=== PATIENT | female | born 1995 | race Two or more races ===

== ENCOUNTER → 2018-10-02 | Emergency (ER) | payer BC, OTHER ==
[~2018-10-02] MED LIST: Acetaminophen TAB* 325 MG ONE; Acetaminophen TAB* 325 MG PO ONE; Iohexol 300* (CONTRAST) 10 ML SDV IV ONE; Ketorolac INJ* 30 MG/ML 1 ML VIAL IV PUSH ONE; Ketorolac INJ* 30 MG/ML 1 ML VIAL ONE; NS 0.9% 1000 ML*IV.FLUID IV ONE
--- NOTE | 2018-10-02 12:05 | ED ---
HPI Febrile Illness - HPI Summary HPI Summary: A 22 y/o F sent from [facility] presents to ED with c/o fever onset two days ago, 09/30. At onset, pt was feeling lethargic, and had episodes of diarrhea, R-lower back pain and RUQ and RLQ abd pain. Her temp at home was 99 F. She is also experiencing chills, nausea, cough, stiff neck, mild sore throat , ear pain, generalized myalgia, and occipital NGUYỄN. 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 In ED, pt's temperature is 102.6 F. She denies vomiting, rhinorrhea, urinary sx. She ate an apple at 0800 today and has been drinking water throughout the morning. No flu shot this year. She did get all her vaccines prior to coming to [place], including the meningitis vaccine. LNMP: began 09/24/18, which was usual flow. PMHx: hypothyroidism and takes medication. She also takes Zoloft, Topomax, Amitriptyline for hx migraine. Pt states her current headache is not like her usual migraine NGUYỄN. Pt states that [facility] was concerned about possible appendicitis because of her RLQ abd pain, fever and nausea. Vital signs while in room: HR 92 bpm, BP 117/98, temp 102.6 temporal. - History of Current Complaint Chief Complaint: EDGeneral Hx Obtained From: Patient Onset/Duration: Started Days Ago, Atraumatic, Still Present Timing: Constant Temperature: 102.6 F - in ED, after acetaminophen 1.5 hrs prior at [facility] Initial Severity: Moderate Current Severity: Severe Pain Intensity: 8 Pain Scale Used: 0-10 Numeric Aggravating Factors: Nothing Alleviating Factors: Nothing Associated Signs and Symptoms: Chills, Diarrhea, Headache, Myalgia, Nausea, Sore Throat, Stiff Neck, Other: - pos: lethargy, back pain, abd pain, ear pain. neg: vomiting, rhinorrhea, migraine, urinary sx. - Allergy/Home Medications Allergies/Adverse Reactions: Allergies Allergy/AdvReac Type Severity Reaction Status Date / Time No Known Allergies Allergy Verified 10/16/16 11:25 PMH/Surg Hx/FS Hx/Imm Hx Previously Healthy: No Endocrine/Hematology History: Reports: Hx Thyroid Disease - 1 Denies: Hx Diabetes Cardiovascular History: Denies: Hx Hypertension, Hx Pacemaker/ICD History: Denies: Hx Renal Disease Sensory History: Denies: Hx Hearing Aid Neurological History: Reports: Hx Migraine Psychiatric History: Denies: Hx Panic Disorder - Surgical History Surgery Procedure, Year, and Place: Labrum surgery, performed in [place] ([facility]) Infectious Disease History: No Infectious Disease History: Denies: Traveled Outside the [place] in Last 30 Days - Family History Known Family History: Positive: Diabetes, Other - thyroid problems (hypo- mom) - Social History Occupation: Student Lives: Dormitory/Roommates - apartment, one roommate Alcohol Use: Occasionally Hx Substance Use: No Substance Use Type: Reports: None Hx Tobacco Use: No Smoking Status (MU): Never Smoked Tobacco Review of Systems Positive: Fever, Chills, Other - lethargy Positive: Sore Throat, Ear Ache. Negative: Nasal Discharge Cardiovascular: Negative Positive: Cough Positive: Abdominal Pain, Diarrhea, Nausea. Negative: Vomiting Negative: dysuria, hematuria Musculoskeletal: Other - stiff neck Positive: Myalgia - generalized Skin: Negative Positive: Headache - but no migraine Psychological: Normal All Other Systems Reviewed And Are Negative: Yes Physical Exam - Summary Physical Exam Summary: Appearance: Ill-appearing, febrile, moderate pain distress, well-nourished Skin: Warm, color reflects adequate perfusion, dry. Acne on back. No petechiae or purpura Head: Normal Head/Face inspection, atraumatic Eyes: Conjunctiva clear, PERRL, EOMI, no nystagmus ENT: Normal inspection, TM's clear, Pharynx not injected, tonsils not enlarged, no exudate Neck: Supple, no nodes, no JVD No spinal tenderness to palpation. Good chin to chest. No meningismus Respiratory: Lungs clear, normal breath sounds, no respiratory distress Cardio: Tachy, No murmur, pulses normal, brisk capillary refill Abdomen: Soft, RLQ tenderness, no guarding, no rebound, no CVAT Bowel sounds: Present Musculoskeletal: Strength Intact/ROM intact, no calf tenderness, no edema. No spinal tenderness to palpation. Psychological: Normal Neuro: Alert, muscle tone normal, no focal deficit. neg Kernig's and neg Tigredrobb Triage Information Reviewed: Yes Vital Signs On Initial Exam: Initial Vitals Temp Pulse Resp BP Pulse Ox 102.6 F 122 18 109/64 97 11/01/18 11:45 10/02/18 11:45 10/02/18 11:45 10/02/18 11:45 10/02/18 11:45 Vital Signs Reviewed: Yes Diagnostics - Vital Signs Vital Signs Temp Pulse Resp BP Pulse Ox 10/02/18 11:45 102.6 F 122 18 109/64 97 - Laboratory Result Diagrams: 10/02/18 11:54 10/02/18 11:54 Lab Statement: Any lab studies that have been ordered have been reviewed, and results considered in the medical decision making process. - Radiology CXR Radiology Interpretation Completed By: Radiologist Summary of Radiographic Findings: IMPRESSION: NO ACTIVE CARDIOPULMONARY DISEASE. ED provider has reviewed this report. - CT ABD/PEL CT Interpretation Completed By: Radiologist Summary of CT Findings: IMPRESSION: THE APPENDIX IS NOT CLEARLY VISUALIZED. THERE IS NO INFLAMMATORY CHANGE OR LOCULATED FLUID COLLECTION WITHIN THE RIGHT LOWER QUADRANT. ED provider has reviewed this report. - EKG 1204 ST Segment: Normal Ectopy: None EKG Comparison: Other Summary of EKG Findings: EKG at 12:04 shows SR 94bpm, nml reveals nml STEPHANE CT, nml QTc, and nml axis. Click: ectopy none / non-specific T-waves. No prior EKG. Re-Evaluation - Re-Evaluation 1 Re-Evaluation Time: 15:17 Change: Worse Comment: Pt's fever has returned, she has chills, NGUYỄN, stiff neck. At bedside, HR : 110 bpm. BP: 104/63. Pt can touch her neck to chest without pain. She feels tightness of neck at her lateral neck when moving from side to side. Negative Kernig's and Brudzinski's signs. Her mental status is normal. Her abdominal pain has resolved. No vomiting in the ED. No abdominal tenderness, guarding or rebound. Course/Dx - Course Course Of Treatment: Pt is a 22 y/o F sent from [facility] presenting with fever (102.6 F) today. Sx onset two days ago includes lethargy, diarrhea, R- lower back pain,RUQ/RLQ abd pain, chills, nausea, cough, stiff neck, mild sore throat, ear pain, generalized myalgia, and occipital NGUYỄN. 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 Denies flu shot this year and is UTD on vaccines, including meningitis vaccine. Lab work shows normal wbc count, INR: 1.18, Creatinine: 1.05, Glucose: 106, ESR: 27, CRP: 25.9. UA results show WBC 2+, RBC 1+, squamous epithelia present, leukocyte esterase 2+. Urine culture pending, Blood cultures pending. CXR shows no cardiopulmonary disease. Rapid flu, mono and strep are negative. Abdominal/pelvic CT with oral and IV contrast did not clearly show the appendix but did not show any pericolonic inflammatory changes. Gallbladder and kidneys without stones or inflammatory changes and no lymphadenopathy. Allergies noted. UA results reviewed. Pt medications reviewed this visit. Pt had been given acetaminophen prior to ED admission, and was 102.6 on admission to the ED. Pt was given ketorolac and IV fluids. Pt had CT abd/pelvis with oral and IV contrast to eval RLQ/ RUQ pain/fever/pyuria/ hematuria. Temp did increase to 103.2 but pt's abd pain improved with hydration and ketorolac and pt had no other localizing signs for source of fever , no meningismus, no signs of sepsis (normal lactate x 2) and pt was given acetaminophen 975mg po after fever increased. Pt was retentive of crackers and po fluids in the ED and ambulatory. CT did not show the appendix clearly, but no pericolonic inflammatory changes, and gallbladder and kidneys also showed no stones and no inflammatory changes. She is DC'd home with dx fever, viral syndrome, abdominal pain and will have her roommate at her apartment when she returns home, and will follow up with [facility] in the next 1-2 days, and return to the ED if any new or worsening symptoms. Blood cultures x 2 and urine culture are pending at time of discharge. - Febrile Illness Differential Diagnoses: Bacteremia, Fever of Unknown Origin, Meningitis, Pneumonia, Pyelonephritis, Sepsis, Viremia, Other: - cholecystitis, strep, mono , influenza - Diagnoses Provider Diagnoses: Fever, Viral syndrome, Abdominal pain Discharge - Sign-Out/Discharge Documenting (check all that apply): Patient Departure - DC - Discharge Plan Condition: Stable Disposition: HOME Patient Education Materials: Fever in Adults (ED), Acute Abdominal Pain (ED), Viral Syndrome (ED) Forms: *School Release [facility]errals[facility] [Medical Doctor] - 1 Day Additional Instructions: You were given IV fluids and ketorolac 30mg IV (toradol) for a temp of 103.2 at 3:15pm and then acetaminophen 975mg orally at 4:00pm. You may continue to take acetaminophen and ibuprofen for pain and fever. You may have a urinary infection. We will contact you if you need further treatment based on the urine culture results. Return to the ER if you have new or worsening symptoms. - Billing Disposition and Condition Condition: STABLE Disposition: Home - Attestation Statements Document Initiated by Tony: Yes Documenting Scribe: Guerrero Ramachandran Provider For Whom Tony is Documenting (Include Credential): Dr. Rosina Lara MD Scribe Attestation: Guerrero Galindo, scribed for Dr. Rosina Lara MD on 10/06/18 at 2235. Scribe Documentation Reviewed: Yes Provider Attestation: The documentation as recorded by the Guerrero parra accurately reflects the service I personally performed and the decisions made by me, Dr. Rosina Lara MD
[2018-10-02 12:09] LABS: ABS Basophils 0 10^3/ul (0-0.2); ABS Eosinophils 0 10^3/ul (0-0.6); ABS Neutrophils 7.1 10^3/ul (1.5-7.7); ABS Nucleated RBC 0 10^3/ul; Eosinophil % 0 % (0-6); Hematocrit 39 % (35-47); Hemoglobin 13.1 g/dl (12.0-16.0); Mean Corpuscular HGB Conc 34 g/dl (31-36); Mean Corpuscular Hemoglobin 30 pg (27-31); Mean Corpuscular Volume 88 fL (80-97); Mean Platelet Volume 7.1 um3 (7.4-10.4); Nucleated Red Blood Cells % 0; Platelet Count 241 10^3/ul (150-450); Red Cell Distribution Width 13 % (10.5-15); White Blood Count 9.1 10^3/ul (3.5-10.8)
[2018-10-02 12:17] LABS: INR 1.18 (0.77-1.02)
[2018-10-02 12:28] LABS: EGFR Non-African American 66.8 (>60)
--- NOTE | 2018-10-02 13:15 | RAD ---
HISTORY: chest pain COMPARISONS: None VIEWS: 1: frontal AP view of the chest at 12:38 PM FINDINGS: LINES AND TUBES: None. CARDIOMEDIASTINAL SILHOUETTE: The cardiomediastinal silhouette is normal for portable technique. PLEURA: The costophrenic angles are sharp. No pleural abnormalities are noted. LUNG PARENCHYMA: The lungs are clear. ABDOMEN: The upper abdomen is clear. There is no subphrenic gas. BONES AND SOFT TISSUES: No bone or soft tissue abnormalities are noted. IMPRESSION: NO ACTIVE CARDIOPULMONARY DISEASE.
[2018-10-02 13:22] LABS: Urine Appearance Cloudy; Urine Blood Negative (Negative); Urine Color Yellow; Urine Ketones Negative (Negative); Urine Protein Negative (Negative); Urine Red Blood Cell 1+(3-5/hpf) (Absent); Urine Specific Gravity 1.021 (1.010-1.030); Urine Urobilinogen Negative (Negative); Urine White Blood Cell 2+(11-20/hpf) (Absent)
--- NOTE | 2018-10-02 15:38 | RAD ---
CLINICAL HISTORY: RLQ abd pain COMPARISON: None TECHNIQUE: Multiple contiguous axial CT scans were obtained of the abdomen and pelvis after the administration of intravenous contrast. Coronal and sagittal multiplanar reformations are submitted for review. Oral contrast was administered. FINDINGS: LUNG BASES: The lung bases are clear. LIVER: The liver is normal in shape, size, contour, and attenuation. BILE DUCTS: There is no intrahepatic or extrahepatic biliary dilatation. GALLBLADDER: The gallbladder is normal, without pericholecystic inflammatory change. PANCREAS: The pancreas is normal, without mass or ductal dilatation. SPLEEN: Normal in size and appearance. UPPER GI TRACT: Evaluation of the gastrointestinal tract is limited by incomplete gastric distention. The upper GI tract is unremarkable. SMALL BOWEL AND MESENTERY: The small bowel is normal in contour, course, and caliber. There is no obstruction or dilatation. COLON: The colon is normal in contour, course, caliber. There is no pericolonic inflammatory change. The appendix is not clearly visualized. ADRENALS: Normal bilaterally. KIDNEYS: The kidneys are normal in shape, size, contour, and axis. There is no hydronephrosis or nephrolithiasis. BLADDER: The bladder is smooth in contour. PELVIC ORGANS: The uterus and adnexa are grossly normal for technique. AORTA: The aorta is normal. IVC: Unremarkable LYMPH NODES: There is no lymphadenopathy by size criteria. ABDOMINAL WALL: There is no evidence for abdominal wall hernia. BONES AND SOFT TISSUES: The bones and soft tissues are unremarkable. OTHER: None IMPRESSION: THE APPENDIX IS NOT CLEARLY VISUALIZED. THERE IS NO INFLAMMATORY CHANGE OR LOCULATED FLUID COLLECTION WITHIN THE RIGHT LOWER QUADRANT.
[2018-10-02 16:20] VITALS: BP 116/69
== END | disposition home or self-care (01) ==
LOC: ED 11:28
DX: R50.9 Fever, unspecified (principal); R19.7 Diarrhea, unspecified; R51 Headache; R11.0 Nausea; J02.9 Acute pharyngitis, unspecified; M54.9 Dorsalgia, unspecified; H92.09 Otalgia, unspecified ear; B34.9 Viral infection, unspecified; R10.9 Unspecified abdominal pain
CPT/HCPCS: 36415; 71045; 74177; 80053; 81003; 81015; 82550; 83605; 84484; 85025; 85610; 85652; 85730; 86140; 86308; 87040; 87086; 87651; 93005; 96374; 99283; A9270-GY; J1885; Q9967